=== PATIENT | female | born 1980 | race African-American/Black ===

== ENCOUNTER → 2019-03-03 | Outpatient (CLI) | payer BC, OTHER ==
[~2019-03-03] MED LIST: BACTRIM DS TAB1 EACH PO; CIPRO500 MG PO; COLACE100 MG PO; FLAGYL500 MG PO; GLUMETZA500; HYDROCODONE-AP1 EAC6 PO; KEFLEX500 M1 PO; KEFLEX500 MG PO; NORCO 10-325 T1 EACH PO; NOVOLOG100 UNIT/M; PIOGLITAZONE15 MG; PRENATE ELITE1 EAC2
== END ==
LOC: HYPER 08:38
DX: E11.621 Type 2 diabetes mellitus with foot ulcer (principal); L97.512 Non-pressure chronic ulcer of other part of right foot with fat layer exposed; L98.9 Disorder of the skin and subcutaneous tissue, unspecified; L84 Corns and callosities; E66.3 Overweight; R60.0 Localized edema; Z68.28 Body mass index [BMI] 28.0-28.9, adult; Z79.84 Long term (current) use of oral hypoglycemic drugs

== ENCOUNTER 2019-03-05 16:34 | Inpatient (IN) | payer BC, OTHER ==
[~2019-03-05] VITALS: Ht 160 cm; Wt 73.0 kg
[~2019-03-05 16:34] MED LIST changes: -BACTRIM DS TAB1 EACH PO; -KEFLEX500 M1 PO
[2019-03-05 16:35] VITALS: BP 148/85
[2019-03-05 17:52] LABS: BE(vivo) 5.4 mmol/L (-2 to +3); HCO3 28.6 mmol/L (22.0-26.0); PCO2 VENOUS 36.3 mmHg (41.0-51.0); PO2 VENOUS 35.4 mmHg (35.0-45.0)
--- NOTE | 2019-03-05 18:04 | NUR ---
IV BLOWN X 2; COMPLAINT INSPECTOR PAGED BY EVANGELIST MARIA RN
[2019-03-05 18:05] LABS: HEMATOCRIT 26.4 % (37.0-47.0); HEMOGLOBIN 8.1 gm/dL (12.0-15.0); MCH 19.1 pg (26.0-34.0); MCHC 30.5 g/dL (28.0-37.0); MCV 62.6 fL (80.0-100.0); PLATELET COUNT 653 thou/uL (150-400); RBC 4.22 mil/uL (4.20-5.00); RDW 15.8 % (10.5-14.5); WBC 32.4 thou/uL (4.0-11.0)
[2019-03-05 18:19] LABS: CALCIUM 8.9 mg/dL (8.5-10.1); CREATININE 1.1 mg/dL (0.6-1.0); POTASSIUM 4.7 mmol/L (3.5-5.1)
[2019-03-05 18:24] LABS: TOTAL BILIRUBIN 0.1 mg/dL (<0.1-1.0); TOTAL PROTEIN 7.7 g/dL (6.4-8.2)
[2019-03-05 18:44] LABS: PLATELET ESTIMATE INCREASED
[2019-03-05 18:45] LABS: HYPOCHROMASIA 3+; MICROCYTES 3+; TARGET CELLS 1+
[2019-03-05 18:46] LABS: OVALOCYTES 1+; SCHISTOCYTES 1+
[2019-03-05 18:50] VITALS: BP 148/85
[2019-03-05 19:00] VITALS: BP 160/92
[2019-03-05] MEDS ORDERED: BACTRIM DS TAB1 EACH PO (19:21)
[2019-03-05] MEDS ORDERED: KEFLEX500 M1 PO (19:21)
--- NOTE | 2019-03-05 19:27 | NUR ---
CALLED AT THIS VERY MINUTE AND WAS TOLD THAT NURSE IS IN REPORT; I ADVISED THAT I WAITED UNTIL NOW TO CALL I THOUGHT 45 MIN AFTER SHIFT CHANGE WOULD BE LONG ENOUGH; STILL UNABLE TO COME TO THE PHONE; ADVISED HOOKER MACHINE TENDER WILL HAVE TO CALL REPORT
[2019-03-05 19:39] LABS: % SATURATION 10 % (20-39); IRON 23 ug/dL (50-170); TIBC 222 ug/dL (250-450)
--- NOTE | 2019-03-05 19:42 | NUR ---
CONSULTED TO PLACE A PICC FOR A PATIENT IN THE ER ADMITTING WITH A FOOT WOUND INFECTION AND ELEVATED WBC. DR. WHELAN AT BEDSIDE AND REQUESTING A PICC. PICC PLACEMENT DISCUSSED WITH THE PATIENT. BENIFITS AND RISKS FOR DVT AND INFECTION WERE DISCUSSED AND SHE VERBALIZED UNDERSTANDING. CONSENT SIGNED. THE RUE BASILIC WAS WIDLEY PATENT. A #4F DOUBLE LUMEN POWER PICC WAS PLACED PER HOSPITAL POLICY AFTER A BEDSIDE TIMEOUT WAS COMPLETE. PICC WAS TRIMMED TO 40CM AND ADVANCED TO 2CM EXTERNAL. A STAT CHEST XRAY WAS ORDERED TO CONFIRM PLACEMENT
--- NOTE | 2019-03-05 19:57 | EKG ---
[address] [address] ELECTROCARDIOGRAM REPORT Name: ANAY AKBARTANNA ROSIBEL Room #: 170-6 ADM IN M.R.#: [id number] ������������������ Admission: 03/05/19 ������������������ Attend Phys: Casper Seay MD Discharge: ������������������ Date of : 80 Report #: [id number] ����������������������������������������������������������������� [id number] THIS REPORT FOR: //name// [facility] ED Test Date: 2019-03-05 Test Time: 17:30:59 Pat Name: TANNA AKBAR Department: Room: 170 Gender: F Zumba Instructor: SHARRI : 1980 Requested By: Prasad Dyer Order Number: [id number] MD: Carlos Griffith Measurements Intervals [place] Rate: 101 P: 92 AK: 151 QRS: 40 QRSD: 80 T: 14 QT: 345 QTc: 448 Interpretive Statements Sinus tachycardia Borderline T abnormalities, anterior leads No previous ECG available for comparison Electronically Signed On 03-05-2019 19:57:31 CDT by Carlos Griffith [email or web address] ��������������������������������������������� <ELECTRONICALLY SIGNED> ���������������������������������������� By: Carlos Griffith MD ��������������������������������������������� 03/05/191956 29 29 Carlos Griffith MD /JULIETTE
[2019-03-05 20:06] LABS: FOLIC ACID 15.5 ng/mL (8.6-58.9)
[2019-03-05 22:00] VITALS: BP 128/78
[2019-03-06 04:05] VITALS: BP 113/69
--- NOTE | 2019-03-06 04:24 | NUR ---
PT ADMITTED TO THE UNIT @ 2049 IN A STABLE CONDITION. ADMISSION HX, EDUCATION AND ASSESSMENT COMPLETED. PT DENIED PAIN. HAS BLISTER ON RIGHT FOOT. IV ABX AND IVF INFUSING ORDERED. PICC ON NINFA. FALL AND ISOLATION PREC IN PLACE. CALL LIGHT WITHIN REACH
[2019-03-06 07:45] VITALS: BP 123/75
[2019-03-06 08:34] LABS: HEMOGLOBIN 6.7 gm/dL (12.0-15.0)
[2019-03-06 08:35] LABS: HEMATOCRIT 21.3 % (37.0-47.0); MCH 19.4 pg (26.0-34.0); MCHC 31.2 g/dL (28.0-37.0); MCV 62.1 fL (80.0-100.0); RBC 3.44 mil/uL (4.20-5.00); RDW 15.4 % (10.5-14.5)
[2019-03-06 08:37] LABS: CALCIUM 8.1 mg/dL (8.5-10.1); PLATELET COUNT 543 thou/uL (150-400); POTASSIUM 4.5 mmol/L (3.5-5.1); WBC 16.5 thou/uL (4.0-11.0)
[2019-03-06 09:19] LABS: ABSOLUTE NEUTROPHILS 12.2 thou/uL (1.4-8.2); ANISOCYTOSIS 1+; HYPOCHROMASIA 2+; MICROCYTES 3+; PLATELET ESTIMATE INCREASED
--- NOTE | 2019-03-06 10:47 | NUR ---
Assess due to pt with right foot abscess, hx of diabetes. BG [phone], A1C is pending. Not wanting to answer many questions regarding diet. Stated appetite is fine. Chart was reviewed and was noted pt noncompliant with medications. Continue carb control diet and available for questions if needed. Low nutrition risk
[2019-03-06 15:14] LABS: HEMATOCRIT 22.2 % (37.0-47.0)
--- NOTE | 2019-03-06 15:50 | NUR ---
ASSESSMENT-PT LIVES AT HOME WITH HER CHILDREN. PT WALKS ON HER OWN AND DOES HER OWN ADLS. PT DRIVES. PT DENIES ANY DME AND DENIES ANY HH SERVICES. PT WAS WORKING PRIOR TO ADMISSION. SHE HER SISTER HERE IN THE AREA FOR SUPPORT. PT TELLS ME SHE MAY BE GOING TO SURGERY LATER TODAY. FOLLOWING TO ASSIST WITH DC PLANNING. GAVE PT ADV. DIRECTIVE INFORMATION.
[2019-03-06 16:00] VITALS: BP 148/94
--- NOTE | 2019-03-06 20:38 | NUR ---
ASSUMED CARE OF PT AT 0700. ASSESSMENT CHARTED. DROWSY, BUT ORIENTED TO PERSON, PLACE, TIME, AND SITUATION. DENIES PAIN. RIGHT FOOT BLISTER AND LEFT LEVY NONHEALING WOUND NOTED. LOW HGB NOTED THIS AM, H&H ORDERED, DR. WHELAN NOTIFIED NO BLOOD TRANSFUSION ORDERS AT THIS TIME. MRI AND US COMPLETED TODAY. GENET PATEL PLANS FOR I&D THIS EVENING. PT NPO STARTING AT 12:00. ACHS, INSULIN GIVEN ORDERED. PT LEFT VIA CART AT 19:30 FOR SURGERY. END OF SHIFT.
[2019-03-06 22:35] VITALS: BP 130/84
--- NOTE | 2019-03-06 23:42 | O ---
[facility] [place] [address] OPERATIVE REPORT Name: ANAY AKBARTANNA Room #: 424-P ADM IN M.R.#: [id number] Admission: 03/05/19 ������������������ Attend Phys: Casper Seay MD Discharge: ������������������ Date of : 80 Report #: [id number] THIS REPORT FOR: //name// CC: Casper Seay [facility] physician/PCP DATE OF SERVICE: 03/06/2019 SERVICE: Orthopedics. FACILITY: [facility] SURGEON: Marlon Tellez M.D. PRECISION ASSEMBLER BENCH: Myesha Corral NP PREOPERATIVE DIAGNOSES: 1. Abscess, right foot. 2. Uncontrolled diabetes. POSTOPERATIVE DIAGNOSES: 1. Abscess, right foot. 2. Uncontrolled diabetes. PROCEDURE: Incision and drainage down to the muscle layer, right foot. COMPLICATIONS: None. DRAINS: None. SPECIMENS: Cultures x 2. HISTORY OF PRESENT ILLNESS: The patient is a 39-year-old female with history of uncontrolled diabetes, who reportedly stepped on a piece of glass and sustained a puncture wound on her foot. She later developed a diabetic foot wound and was admitted to the hospital yesterday evening and placed on antibiotics. She was noted to have a significant abscess. An MRI confirmed such as well, with traversing of a dorsal mid foot abscess on the lateral aspect of the foot down to the original puncture wound. She was indicated for surgical treatment. Risks, benefits, alternatives and indications of surgery were discussed with her in detail and she gave full informed consent and wished to proceed. Risks included, but not limited to pain, bleeding, persistence of the infection, injury to nerves or blood vessels, persistent infection, need for further surgery including repeat as well as complications related to anesthesia. PROCEDURE IN DETAIL: After the right lower extremity was correctly identified [facility] [address] [place] [address] OPERATIVE REPORT Name: ANAY NAOMIETANNA ROSIBEL Room #: 424-P [facility] IN M.R.#: [id number] Admission: 03/05/19 ������������������ Attend Phys: Casper Seay MD Discharge: ������������������ Date of : 80 Report #: [id number] in the preoperative holding area as the operative extremity, the patient was taken to the operating room, where general anesthesia was induced without complication. She was padded appropriately. She did not receive intraoperative prophylactic antibiotics as she is already on an antibiotic regimen. The right leg was prepped and draped in the standard sterile fashion. Time-out procedure was performed. No tourniquet was utilized. Note that a 16-gauge needle was used to aspirate the purulence out of the abscess in a sterile fashion and this was sent for cultures x 2. The blister on the dorsum of the foot, which was about 12 cm in length x 8 cm in width, was then unroofed and peeled back and this allowed access to the abscess, which itself ultimately was 5 cm wide x 5 cm long x 5 cm deep. The wound on the dorsal side of the lateral mid foot was incised and the necrotic tissue was excised, leaving an ellipsoid-shaped wound and then blunt dissection was performed, exploring throughout the purulent avenues within the mid foot, primarily with the pus originating from the plantar puncture wound, which openly communicate with the dorsal wound. More medially, there was some unhealthy appearing cutaneous tissue and there was, in fact, an abscess that was traversing across the dorsum of the mid foot more medially and the shape of this was rather difficult to discern with blunt exploration. So, I made a counterincision more medially in order to ensure that the entire cavity was adequately exposed and debrided and some additional purulence to egress with making this counterincision. The blunt dissection was then completed and then the wound was copiously irrigated. A second round of debridement was performed sharply all the way down to the muscle layer. There was no apparent periosteal violation and so no evidence of bony involvement or osteomyelitis on my inspection. After the second round of sharp debridement was completed, the wound was again irrigated and explored to ensure that there was no further residual infection. At this point, the final irrigation was performed and then the wound cavities were packed with Dakin-soaked gauze. Xeroform was placed over the desquamed dorsal mid foot tissue and then a sterile gauze wrap applied, followed by an Ross wrap. The patient was awakened from anesthesia and taken to recovery room in stable condition. No complications. All counts were correct. ��������������������������������������������� <ELECTRONICALLY SIGNED> ���������������������������������������� By: Marlon Tellez MD ��������������������������������������������� 03/06/19 2342 [id number] Marlon Tellez MD /nt
[2019-03-07 02:06] LABS: ESTIMATED AVERAGE GLUCOSE < 74 mg/dL (()); GLYCOHEMOGLOBIN (HGB A1C) < 4.2 % (4.8-5.6)
--- NOTE | 2019-03-07 02:38 | NUR ---
PT CAME UP TO FLOORFROM SURGERY AT 2212.PT WAS STILL DROWSY BUT EASILY AROUSABLE.PT ON 2L/NC.DRSG ON HER R FOOT C/D/I.IVF AND IV ABX INFUSING ORDERED.BG MONITORED WITH COVERAGE.VSS SO FAR.PT RESTING ON HER BED AT THIS TIME.FALL AND ISOLATION PRECAUTIONS IN PLACE.CALL LIGHT WITHIN REACH.
[2019-03-07 03:55] VITALS: BP 114/75
[2019-03-07 05:52] LABS: MCHC 31.7 g/dL (28.0-37.0)
[2019-03-07 05:54] LABS: MCH 19.5 pg (26.0-34.0); MCV 61.7 fL (80.0-100.0); PLATELET COUNT 514 thou/uL (150-400); RDW 15.4 % (10.5-14.5); WBC 15.7 thou/uL (4.0-11.0)
[2019-03-07 06:01] LABS: CALCIUM 7.9 mg/dL (8.5-10.1); HEMOGLOBIN 6.3 gm/dL (12.0-15.0); POTASSIUM 3.9 mmol/L (3.5-5.1)
[2019-03-07 06:02] LABS: HEMATOCRIT 19.7 % (37.0-47.0)
[2019-03-07 06:34] LABS: ABSOLUTE NEUTROPHILS 11.6 thou/uL (1.4-8.2)
[2019-03-07 06:36] LABS: ANISOCYTOSIS 1+; HYPOCHROMASIA 3+; MICROCYTES 3+; PLATELET ESTIMATE INCREASED; POIKILOCYTOSIS 1+; POLYCHROMASIA 2+
[2019-03-07 07:59] VITALS: BP 103/64
--- NOTE | 2019-03-07 12:31 | NUR ---
WOUND CARE CONSULT; I WAS CONSULTED TO FOLLOW THIS PATIENT FOR WOUND CARE S/P WOUND DEBRIDEMENT AND VAC APPLICATION / MANAGEMENT. THE WOUND IS STABLE PRIOR TO APPLICATION. FAMILY PRESENT AND EDUCATED ALL MATTERS RELATED TO VAC THERAPY. THE WOUNDBED IS CLEAN WITH NO BLEEDING. A TENDON WAS VISIBLE. THE VAC WAS APPLIED WITHOUT ANY PROBLEMS. RECOMMENDATION; CONTINUE VAC THERAPY. FAMILY PRESENT
[2019-03-07 13:43] VITALS: BP 113/75; BP 135/68
[2019-03-07 15:25] VITALS: BP 94/66
--- NOTE | 2019-03-07 16:58 | NUR ---
PT IN BED SLEEPING ON AND OFF.ASSESSMENT COMPLETED.VSS.DR FISCHER HERE,ORDER NOTED.INSURANCE CLERK PLACED WOUND VAC TO LEFT FOOT.1 UNIT PRBC GIVEN TODAY. HH WILL BE CHECK BEFORE THE END OF SHIFT.FAMILY HERE TO VISIT,UPDATES GIVEN. WILL CONTINUE TO MONITOR.
[2019-03-07 18:52] LABS: HEMATOCRIT 28.3 % (37.0-47.0)
[2019-03-07 18:56] LABS: HEMOGLOBIN 8.7 gm/dL (12.0-15.0)
[2019-03-07 20:00] VITALS: BP 105/66
--- NOTE | 2019-03-08 02:04 | NUR ---
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
[2019-03-08 05:10] VITALS: BP 110/60
[2019-03-08 05:58] LABS: HEMATOCRIT 24.2 % (37.0-47.0); HEMOGLOBIN 7.7 gm/dL (12.0-15.0); MCH 20.5 pg (26.0-34.0); MCHC 31.9 g/dL (28.0-37.0); MCV 64.2 fL (80.0-100.0); PLATELET COUNT 546 thou/uL (150-400); RBC 3.77 mil/uL (4.20-5.00); RDW 19.3 % (10.5-14.5); WBC 15.5 thou/uL (4.0-11.0)
[2019-03-08 07:35] LABS: ABSOLUTE NEUTROPHILS 10.5 thou/uL (1.4-8.2); ANISOCYTOSIS 1+; MICROCYTES 1+; POIKILOCYTOSIS 1+
[2019-03-08 07:36] LABS: BURR CELLS OCCASIONAL; HYPOCHROMASIA 1+; OVALOCYTES OCCASIONAL; POLYCHROMASIA SLIGHT; TEARDROPS OCCASIONAL
[2019-03-08 07:40] LABS: LARGE PLATELETS OCCASIONAL; PLATELET ESTIMATE INCREASED
--- NOTE | 2019-03-08 14:03 | HC ---
[facility] [place] [address] CONSULTATION Name: TANNA POOLE Room #: 424-P ADM IN M.R.#: [id number] Admission: 03/05/19 ������������������ Attend Phys: Casper Seay MD Discharge: ������������������ Date of : 80 Report #: [id number] THIS REPORT FOR: //name// CC: Casper Seay [facility] physician/PCP DATE OF SERVICE: 03/06/2019 INFECTIOUS DISEASE CONSULTATION REASON FOR CONSULTATION: Evaluate right foot soft tissue abscess. HISTORY OF PRESENT ILLNESS: A 39-year-old diabetic stepped on broken glass first week of February. This was debrided in the outpatient setting. She had been placed on Bactrim and cephalexin. No improvement with increased pain, swelling and drainage. Blood sugars have been over 200. She has been lethargic for the past week. She is admitted now for further evaluation. The patient was a poor historian. I did obtain more history from her twin sister who was in attendance. No prior history of diabetic foot infection. She does have peripheral edema issues and she has had a left pretibial wound several months ago that has been treated with antibiotics. This has yet to completely heal. She reports no smoking or other cardiovascular issues. REVIEW OF SYSTEMS: Denies any cough, sputum, nausea, vomiting, diarrhea, dysuria or frequency. A full 10-point review of systems was negative other than what has been described above. ALLERGIES: None. MEDICATIONS: As noted on her MAR including Actos, insulin, [place] and most recently, ciprofloxacin and metronidazole. PAST MEDICAL HISTORY: Diabetes, perirectal abscess, left lower extremity wound. FAMILY HISTORY: Noncontributory. SOCIAL HISTORY: Nonsmoker, no significant alcohol intake. She lives with her son. PHYSICAL EXAMINATION: VITAL SIGNS: Afebrile and hemodynamically stable. She was lethargic, but she would arouse and answer questions, but then would drift back off to sleep. SKIN: Remarkable for an eschar over the left pretibial skin with no surrounding erythema or fluctuance. HEENT: Eyes without scleral icterus. Mouth without mucositis. NECK: Supple. [facility] [address] [place] [address] CONSULTATION Name: ANAY AKBARTANNA ROSIBEL Room #: 424-P [facility] IN M.R.#: [id number] Admission: 03/05/19 ������������������ Attend Phys: Casper Seay MD Discharge: ������������������ Date of : 80 Report #: [id number] LUNGS: Clear. HEART: Regular, without murmur, gallop or rub. ABDOMEN: Soft and nontender with no hepatosplenomegaly or mass. EXTREMITIES: The right foot had a large bullous lesion over the lateral mid to hindfoot. There was open wound break in the skin over the heel pad plantar aspect. There was seropurulent drainage expressed out of this. She had a fair amount of tenderness throughout. She had reasonable sensation in her toes. Good capillary refill. Pulses were diminished in her foot. 2+ pulse in the right femoral and 1+ in the right popliteal. Strength in the upper and lower extremities is normal. PSYCHIATRIC: Mood sedate. LABORATORY STUDIES: Hemoglobin 6.7, WBC 16.5, platelet count 543,000. Creatinine 1. Blood cultures are negative to date. Chest x-ray clear. X-ray of the foot with no bony abnormalities evident. Culture, blood negative to date. IMPRESSION: 1. A 39-year-old with diabetic foot infection following injury with glass impaled in her heel soft tissue, now with worsening skin and soft tissue infection. I am suspecting a polymicrobial infection with increased fluid collection in the soft tissues of the heel. 2. Diabetes, poorly controlled. RECOMMENDATIONS: We will continue IV antibiotic therapy. Obtain tissue cultures. MRI scan. Orthopedic Surgery consultation. I suspect the patient will need incision and drainage. Check vascular studies. Control blood glucose. ��������������������������������������������� <ELECTRONICALLY SIGNED> ���������������������������������������� By: Qamar Collier MD ��������������������������������������������� 03/08/19 1403 [id number] [id number] Qamar Collier MD /nt
--- NOTE | 2019-03-08 14:18 | HC ---
[facility] [place] [place] [address] CONSULTATION Name: TANNA POOLE Room #: 424-P ADM IN M.R.#: [id number] Admission: 03/05/19 ������������������ Attend Phys: Casper Seay MD Discharge: ������������������ Date of : 80 Report #: [id number] THIS REPORT FOR: //name// CC: Casper Seay [facility] physician/PCP DATE OF SERVICE: 03/07/2019 CHIEF COMPLAINT: Diabetic foot ulceration and abscess. HISTORY OF PRESENT ILLNESS: This is a 39-year-old female patient with poorly controlled diabetes. She stepped on a broken glass on 02/19/2019 at her house, was placed on oral antibiotics. She was seen initially in the wound clinic and had some local debridement. She has developed increasing blistering over the lateral right foot, has undergone incision and debridement here in the hospital and was admitted for intravenous antibiotic therapy. She denies pain associated with this. She states that she is feeling relatively well at this time. The surgeon noted in his operative note that there was no evidence of any periosteal involvement and no evidence clinically to suggest osteomyelitis. PAST MEDICAL HISTORY: 1. Diabetes, uncontrolled. 2. Abscess of the right foot. 3. History of perirectal abscess. SOCIAL HISTORY: Negative for alcohol or tobacco use. MEDICATIONS: Include Cipro, Flagyl, [place], Colace, NovoLog, Actos. ALLERGIES: No known drug allergies. REVIEW OF SYSTEMS: CONSTITUTIONAL: The patient denies fever, chills or weight loss. NEUROLOGICAL: The patient denies focal weakness, numbness or tingling, but does note diminished light touch sensation of her lower extremities. ENT: The patient denies earache, nasal drainage, sore throat. CARDIOVASCULAR: The patient denies chest pain or palpitations or diaphoresis. PULMONARY: The patient denies cough or shortness of breath. GASTROINTESTINAL: The patient denies nausea, vomiting, diarrhea or abdominal pain. ORTHOPEDIC: The patient has the ulceration and the surgical wounds to her right foot. Other systems in a 14-point review of systems are negative. PHYSICAL EXAMINATION: VITAL SIGNS: At this time include temperature 98.5, pulse 79, respiratory rate [facility] [address] [place] [address] CONSULTATION Name: TANNA POOLE Room #: 424-P ADM IN M.R.#: [id number] Admission: 03/05/19 ������������������ Attend Phys: Casper Seay MD Discharge: ������������������ Date of : 80 Report #: [id number], blood pressure 103/64. GENERAL: This is a well-developed, well-nourished female patient who appears to be in minimal distress. HEENT: Head normocephalic. Nose and throat clear. NECK: Supple. LUNGS: Clear. HEART: Regular. ABDOMEN: Bowel sounds present. EXTREMITIES: Lower extremities, demonstrably palpable distal pulses. She has surgical wounds on the lateral aspect of the right foot. They are relatively healthy, clean and granulating with no odor or perceivable drainage. The small ulceration on the plantar aspect of the foot is nearly closed. CLINICAL IMPRESSION: 1. Diabetic foot infection and abscess secondary to a glass foreign body. 2. Poorly controlled diabetes mellitus. RECOMMENDATIONS: At this point in time, the patient will be continued on intravenous antibiotic therapy. Cultures from the surgery are pending. We will place a wound VAC to the open areas. She has good vascularity and it ought to heal relatively well. She will need aggressive nutritional support to maximize wound healing and maintain glycemic control as well as diabetic education. All questions have been answered. I appreciate being asked to see her in consultation. ��������������������������������������������� <ELECTRONICALLY SIGNED> ���������������������������������������� By: Josue Lubin MD ��������������������������������������������� 03/08/19 1418 1524 1935 Josue Lubin MD /nt
--- NOTE | 2019-03-08 15:09 | NUR ---
WOUND CARE FOLLOW UP; ROUNDING WITH DR ENRIQUE AND TYREE RECORD MAKER. THE VAC IS FUNCTIONING APPROPRIATLY, THE PATIENT HAS NO COMPLAINTS. NO S/S OF INFECTION AROUND THE SITE OR SYSTEMICALLY NOTED. CONTINUE CURRENT POC DISCUSSED WITH STAFF
--- NOTE | 2019-03-08 15:12 | NUR ---
Following for d/c planning needs. Spoke with physician and pt. Pt plans on returning home on d/c from hospital. Pt does not have PCP.
[2019-03-08 15:51] VITALS: BP 135/92
--- NOTE | 2019-03-08 19:42 | NUR ---
ASSUMED CARE OF PT AT 0700. ASSESSMENT CHARTED. DROWSY, BUT ORIENTED X4. DENIES PAIN. [address], SATS ABOVE 92%. ACHS, INSULIN GIVEN ORDERED. RIGHT FOOT WOUND VAC IN PLACE, NO PROBLEMS NOTED, MINIMAL OUTPUT. VSS. END OF SHIFT.
[2019-03-08 21:38] VITALS: BP 127/85
[2019-03-09 05:05] VITALS: BP 126/82
--- NOTE | 2019-03-09 06:36 | NUR ---
pt rested good, pain to right foot controlled by norco, tolerating oral intake, no nausea noted, no bm noted, voiding in the toilet, up [facility] standby assist, gait is good, wound vac patent, no drainage noted, remains on contact isolation, hourl rounding, monitored.
[2019-03-09 07:27] LABS: BE(vivo) -4.7 mmol/L (-2 to +3); HCO3 20.6 mmol/L (22.0-26.0); PCO2 38.7 mmHg (35.0-45.0); PO2 69.4 mmHg (80.0-100.0); pH 7.344 (7.360-7.450); sO2 93.1 % (92.0-98.0)
[2019-03-09 08:06] LABS: MCH 20.5 pg (26.0-34.0); MCHC 31.6 g/dL (28.0-37.0); MCV 64.7 fL (80.0-100.0); RDW 18.7 % (10.5-14.5); WBC 12.3 thou/uL (4.0-11.0)
[2019-03-09 08:10] LABS: HEMOGLOBIN 7.6 gm/dL (12.0-15.0); PLATELET COUNT 548 thou/uL (150-400)
--- NOTE | 2019-03-09 08:13 | NUR ---
Received consult for malnutrition; will defer diagnosis at this time. Seen on 03/[address] Seen again this AM, but pt still sleeping. Spoke w/ twin sister present at bedside to check in on nutritional intake/status and provide further education. Pt ate 100% of ALL meals yesterday. Sister confirms PO intake is very adequate, pt eating from all food groups. S/p I&D on 03/06 w/ wound vac to R foot for diabetic infection. BGs semi controlled, high at times (135-236 mg/dl x 2 days). On Humalog SSI. IVFs continue. Educated on great need for protein, choosing ideally 2 sources q meal. Recommended home diet of lower carbs (30-45 g/meal), high protein, high vegetables to prevent delayed wound healing. Remains low nutrition risk with education provided.
[2019-03-09 08:23] VITALS: BP 155/101
[2019-03-09 08:36] LABS: ABSOLUTE NEUTROPHILS 6.9 thou/uL (1.4-8.2)
[2019-03-09 08:37] LABS: ANISOCYTOSIS 2+; HYPOCHROMASIA 3+; MICROCYTES 3+; OVALOCYTES 1+; POLYCHROMASIA SLIGHT
[2019-03-09 08:38] LABS: SCHISTOCYTES RARE
--- NOTE | 2019-03-09 10:27 | NUR ---
JULIO reviewed chart. Pt remains on IV abx: vanco and zosyn. Pt has wound vac in place on right foot. SW contacted brim raiser to determine if pt will need home wound vac. Per ID, cultures pending at this time. Plan is for pt to return home when medically stable. JULIO is following to assist as needed with discharge planning.
[2019-03-09 16:05] VITALS: BP 140/92
--- NOTE | 2019-03-09 16:13 | NUR ---
DISCHARGE PLANNING. ANTICPATED DISCHARGE TO HOME WITH IV ANTIBOTIC INFUSION. PATIENT REFERRAL FAXED TO [facility]. VERIFIED REFERRAL RECEIVED. AWATING RESPONSE FROM [facility]. UNIT SW AWARE. FOLLOWING TO ASSIST WITH DISCHARGE.
--- NOTE | 2019-03-09 20:22 | NUR ---
ASSUMED CARE OF PT AT 0700. ASSESSMENT CHARTED. A&O,X4. DENIES PAIN. RIGHT FOOT WOUND VAC IN PLACE. UP WITH X1 ASSIST, GAIT BELT AND WALKER. [address] ONE EPISODE OF N/V THIS AFTERNOON, ZOFRAN GIVEN ORDERED. N/V RESOLVED. PT REPORTS LBM ONE WEEK AGO AND PERSISTENT COUGH, SPOKE TO PHYSICIAN ABOUT THESE CONCERNS, WAITING FOR ORDERS. MOM AND SISTER AT BEDSIDE. NEW POSTOP SHOE ORDERED AND WITH PT. VSS.
[2019-03-09 21:05] VITALS: BP 138/88
--- NOTE | 2019-03-10 04:44 | NUR ---
ASSUMED CARE OF PT @1900 PT A&OX4 DENIES PAIN. WOUND VAC ON RT FOOT INTACT AND DRAINING. ON 2L OF . HOB ELEVATED AND FALL PREC IN PLACE. POC DONE AND FLUIDS INFUSING. WILL CONTIN UE TO MONITOR TILL EOS
[2019-03-10 05:59] LABS: HEMATOCRIT 22.4 % (37.0-47.0); WBC 11.2 thou/uL (4.0-11.0)
[2019-03-10 06:02] LABS: MCH 20.4 pg (26.0-34.0); MCHC 31.3 g/dL (28.0-37.0); MCV 65.2 fL (80.0-100.0); PLATELET COUNT 516 thou/uL (150-400); RBC 3.43 mil/uL (4.20-5.00); RDW 19.1 % (10.5-14.5)
[2019-03-10 06:31] LABS: ABSOLUTE NEUTROPHILS 7.5 thou/uL (1.4-8.2)
[2019-03-10 06:32] LABS: ANISOCYTOSIS 2+; HYPOCHROMASIA 3+; MICROCYTES 3+; PLATELET ESTIMATE INCREASED; POIKILOCYTOSIS 2+
[2019-03-10 06:40] VITALS: BP 138/91
--- NOTE | 2019-03-10 10:36 | NUR ---
JULIO reviewed chart and spoke with nursing and attending physician. Awaiting culture results at this time for recommendation for home abx. JULIO notified that pt has an out of pocket cost of $7900 and a deductible of $3000. [employer] will bill pt's insurance first, as pt will most likely meet her out of pocket and deductible from this hospitalization. If pt does not, then her services will be $132 per day. If pt meets her out of pocket and not the deductible, the cost will be $26.44 per day (20%). If pt meets both (OOP and deductible), then she will be covered at 100%. JULIO faxed PICC line report and order for IV zosyn to [facility]. JULIO notified [facility] liaison. JULIO is following to assist as needed with discharge planning.
[2019-03-10 14:37] VITALS: BP 138/91
[2019-03-10 16:01] VITALS: BP 162/95
--- NOTE | 2019-03-10 16:35 | NUR ---
WOUND CARE FOLLOW UP; ROUNDING WITH DR ENRIQUE AND TRYEE SHEET METAL SHOP HELPER. THE WOUND WAS MACERATED, AND THE DRESSING WAS FOUND NOT INTACT. NO S/S OF INFECTION AT THIS TIME. RECOMMENDATION; D/C WOUND VAC, APPLY AQUACEL AG, ABD SECURE WITH KERLIX AND RAFA WRAP. ( FOLLOW UP IN WOUND CLINIC) DISCUSSED WITH MARK
--- NOTE | 2019-03-10 19:43 | NUR ---
Assumed pt care at 7am.Pt in and out of bed for activities.Assessment completed.vss.Meds given as ordered and well tolerated.Dr Lubin and Royal here order noted.Dc home cancelled for today.Pt will be having 1 unit prbc tonite.Family here and updates given.Mom wanted to be call for all decision making.Pt o2 sat cont to drop per exercise oximetry.Pt remains on o2 at 2lnc.Report off to indy castellon.
[2019-03-10 22:46] VITALS: BP 153/96
[2019-03-10 22:49] VITALS: BP 143/89; BP 149/91; BP 151/88
[2019-03-10 23:40] VITALS: BP 143/89
[2019-03-11 03:45] VITALS: BP 151/88
[2019-03-11 05:16] VITALS: BP 180/111
[2019-03-11 05:43] VITALS: BP 151/88
[2019-03-11 06:29] VITALS: BP 170/91
--- NOTE | 2019-03-11 06:47 | NUR ---
ASSUMED CARE OF PT@ 1900. PT A&0X4. PT ADMINISTERED 1 UNIT OF BLOOD AT THIS SHIFT WITNESS AND DOCUMENTED. NO ADVERSE REACTION AND VITAL SIGNS DOCUMENTED. RAFA WRAPS ON RT FOOT INTACT. ABX INFUSING. AND EVENING MEDS GIVEN. WILL CONTINUE TO MONITOR TILL EOS
[2019-03-11 09:27] LABS: HEMATOCRIT 28.7 % (37.0-47.0); MCH 21.6 pg (26.0-34.0); MCHC 31.7 g/dL (28.0-37.0); MCV 68.1 fL (80.0-100.0); RBC 4.22 mil/uL (4.20-5.00); RDW 23.1 % (10.5-14.5)
[2019-03-11 09:28] LABS: HEMOGLOBIN 9.1 gm/dL (12.0-15.0)
[2019-03-11 09:30] LABS: CALCIUM 9.2 mg/dL (8.5-10.1); MAGNESIUM 1.7 mg/dL (1.8-2.4); POTASSIUM 3.9 mmol/L (3.5-5.1)
[2019-03-11 17:24] VITALS: BP 153/105
[2019-03-11 20:43] VITALS: BP 158/106
[2019-03-12 05:52] VITALS: BP 169/98
--- NOTE | 2019-03-12 07:56 | NUR ---
PT AMBULATING TO BATHROOM INDEPENDENTLY AND IS TOLERATING WELL. DENIES PAIN. RESTING COMFORTABLY. NO NEEDS VOICED. CALL LIGHT WITHIN REACH. WILL CONTINUE TO PROVIDE FREQUENT OBSERVATION.
[2019-03-12 08:02] VITALS: BP 180/106
[2019-03-12 08:10] LABS: HEMOGLOBIN 8.8 gm/dL (12.0-15.0)
[2019-03-12 08:11] LABS: HEMATOCRIT 28.1 % (37.0-47.0); MCH 21.1 pg (26.0-34.0); MCHC 31.5 g/dL (28.0-37.0); MCV 67.2 fL (80.0-100.0); PLATELET COUNT 553 thou/uL (150-400); RBC 4.18 mil/uL (4.20-5.00); RDW 23.6 % (10.5-14.5); WBC 12.5 thou/uL (4.0-11.0)
[2019-03-12 08:18] LABS: CREATININE 1.1 mg/dL (0.6-1.0); MAGNESIUM 1.3 mg/dL (1.8-2.4); POTASSIUM 3.8 mmol/L (3.5-5.1)
[2019-03-12 08:46] LABS: ABSOLUTE NEUTROPHILS 8.3 thou/uL (1.4-8.2)
[2019-03-12 08:47] LABS: ANISOCYTOSIS 3+; BURR CELLS OCCASIONAL; HYPOCHROMASIA 1+; MICROCYTES 1+; TARGET CELLS 1+
[2019-03-12 09:17] VITALS: BP 161/86
--- NOTE | 2019-03-12 13:02 | NUR ---
ASSESMENT COMPLETED. VSS. A/O. DENIES PAIN. NO NOTED SOA. NO NV. UP AD BUCK. PT RESTING IN BED AT THIS TIME. LAXATIVE GIVEN- WAITING FOR RESULTS. ANTICIPATING DC TODAY. WILL CONT. TO MONITOR.
[2019-03-12] MEDS ORDERED: LASIX 40 MG TAB40 M2 PO (15:03)
[2019-03-12] MEDS ORDERED: KLOR-CON 1010 MEQ PO (15:03)
[2019-03-12] MEDS ORDERED: IRON325 PO (15:03)
[2019-03-12] MEDS ORDERED: ZOSYN 3.3753.375 GM IV (15:03)
[2019-03-12] MEDS ORDERED: NORCO 5-325 TA1 EAC1 PO (15:03)
[2019-03-12] MEDS ORDERED: TYLENOL325 MG PO (15:03)
[2019-03-12 15:41] VITALS: BP 156/89
--- NOTE | 2019-03-12 19:05 | NUR ---
CALLED [facility]- THEY WILL DELIVER ABX AT PT ADDRESS THIS EVENING AROUND 8 PM. [facility] WILL VISIT PT TONIGHT BETWEEN [phone] FOR INFUSION TEACHING. PT RESTING IN BED AT THIS TIME. REPORT GIVEN TO NIGHT RN- PT TO DC ONCE ABX INFUSION FINISHED.
== END 2019-03-12 20:00 | disposition home or self-care (01) | DRG 622 ==
LOC: ER 16:34 → 4E 18:19 → EROBS 18:19 → 4E 19:00
PROVIDERS: Emergency Medicine; Internal Medicine; Nurse Practitioner Family; Orthopaedic Surgery Sports Medicine; ADMIT Hospitalist
DX: E11.69 Type 2 diabetes mellitus with other specified complication (principal); J96.01 Acute respiratory failure with hypoxia; J18.1 Lobar pneumonia, unspecified organism; D62 Acute posthemorrhagic anemia; J98.11 Atelectasis; L02.611 Cutaneous abscess of right foot; E11.51 Type 2 diabetes mellitus with diabetic peripheral angiopathy without gangrene; E11.42 Type 2 diabetes mellitus with diabetic polyneuropathy; S91.341A Puncture wound with foreign body, right foot, initial encounter; D57.3 Sickle-cell trait; X58.XXXA Exposure to other specified factors, initial encounter; D56.9 Thalassemia, unspecified; E11.65 Type 2 diabetes mellitus with hyperglycemia; D47.3 Essential (hemorrhagic) thrombocythemia; N28.9 Disorder of kidney and ureter, unspecified; D63.8 Anemia in other chronic diseases classified elsewhere; Z79.1 Long term (current) use of non-steroidal anti-inflammatories (NSAID); Z79.899 Other long term (current) drug therapy; Y93.89 Activity, other specified; Y92.89 Other specified places as the place of occurrence of the external cause; Y99.8 Other external cause status
CPT/HCPCS: 10084; 10183; 27000; 50010; 50101; 50386; 57091; 62110; 62900; 70005

== ENCOUNTER → 2019-03-28 | Outpatient (CLI) | payer BC, OTHER ==
[~2019-03-28] MED LIST changes: +BACTRIM DS TAB1 EACH PO; +IRON325 PO; +KEFLEX500 M1 PO; +KLOR-CON 1010 MEQ PO; +LASIX 40 MG TAB40 M2 PO; +NORCO 5-325 TA1 EAC1 PO; +TYLENOL325 MG PO; +ZOSYN 3.3753.375 GM IV
== END ==
LOC: HYPER 06:44
DX: T81.89XD Other complications of procedures, not elsewhere classified, subsequent encounter (principal); E11.621 Type 2 diabetes mellitus with foot ulcer; L97.515 Non-pressure chronic ulcer of other part of right foot with muscle involvement without evidence of necrosis; L03.115 Cellulitis of right lower limb; L98.8 Other specified disorders of the skin and subcutaneous tissue; L84 Corns and callosities; Z79.84 Long term (current) use of oral hypoglycemic drugs; Y84.2 Radiological procedure and radiotherapy as the cause of abnormal reaction of the patient, or of later complication, without mention of misadventure at the time of the procedure; Y83.8 Other surgical procedures as the cause of abnormal reaction of the patient, or of later complication, without mention of misadventure at the time of the procedure

== ENCOUNTER → 2019-04-04 | Outpatient (CLI) | payer BC, OTHER | LOC: HYPER 06:41 | DX: T81.89XD Other complications of procedures, not elsewhere classified, subsequent encounter (principal); E11.621 Type 2 diabetes mellitus with foot ulcer; L97.515 Non-pressure chronic ulcer of other part of right foot with muscle involvement without evidence of necrosis; L98.9 Disorder of the skin and subcutaneous tissue, unspecified; Z79.84 Long term (current) use of oral hypoglycemic drugs; Y83.8 Other surgical procedures as the cause of abnormal reaction of the patient, or of later complication, without mention of misadventure at the time of the procedure ==

== ENCOUNTER → 2019-04-11 | Outpatient (CLI) | payer BC, OTHER | LOC: HYPER 06:49 | DX: T81.89XD Other complications of procedures, not elsewhere classified, subsequent encounter (principal); E11.621 Type 2 diabetes mellitus with foot ulcer; L97.515 Non-pressure chronic ulcer of other part of right foot with muscle involvement without evidence of necrosis; L98.9 Disorder of the skin and subcutaneous tissue, unspecified; Z79.84 Long term (current) use of oral hypoglycemic drugs; Y83.8 Other surgical procedures as the cause of abnormal reaction of the patient, or of later complication, without mention of misadventure at the time of the procedure ==

== ENCOUNTER → 2019-04-18 | Outpatient (CLI) | payer BC, OTHER | LOC: HYPER 06:57 | DX: T81.89XD Other complications of procedures, not elsewhere classified, subsequent encounter (principal); E11.621 Type 2 diabetes mellitus with foot ulcer; L97.515 Non-pressure chronic ulcer of other part of right foot with muscle involvement without evidence of necrosis; L98.9 Disorder of the skin and subcutaneous tissue, unspecified; L03.115 Cellulitis of right lower limb; Z79.84 Long term (current) use of oral hypoglycemic drugs; Y83.8 Other surgical procedures as the cause of abnormal reaction of the patient, or of later complication, without mention of misadventure at the time of the procedure ==

== ENCOUNTER → 2019-04-24 | Outpatient (CLI) | payer BC, OTHER | LOC: HYPER 06:52 | DX: T81.89XD Other complications of procedures, not elsewhere classified, subsequent encounter (principal); E11.621 Type 2 diabetes mellitus with foot ulcer; L97.515 Non-pressure chronic ulcer of other part of right foot with muscle involvement without evidence of necrosis; L03.115 Cellulitis of right lower limb; L98.9 Disorder of the skin and subcutaneous tissue, unspecified; Z79.84 Long term (current) use of oral hypoglycemic drugs; Y83.8 Other surgical procedures as the cause of abnormal reaction of the patient, or of later complication, without mention of misadventure at the time of the procedure ==

== ENCOUNTER → 2019-05-08 | Outpatient (CLI) | payer BC, OTHER | LOC: HYPER 06:59 | DX: T81.89XD Other complications of procedures, not elsewhere classified, subsequent encounter (principal); E11.621 Type 2 diabetes mellitus with foot ulcer; L97.515 Non-pressure chronic ulcer of other part of right foot with muscle involvement without evidence of necrosis; L03.115 Cellulitis of right lower limb; Z79.84 Long term (current) use of oral hypoglycemic drugs; Y83.8 Other surgical procedures as the cause of abnormal reaction of the patient, or of later complication, without mention of misadventure at the time of the procedure ==

== ENCOUNTER → 2019-05-22 | Outpatient (CLI) | payer BC, OTHER | LOC: HYPER 07:21 | DX: T81.89XD Other complications of procedures, not elsewhere classified, subsequent encounter (principal); E11.621 Type 2 diabetes mellitus with foot ulcer; L97.515 Non-pressure chronic ulcer of other part of right foot with muscle involvement without evidence of necrosis; L03.115 Cellulitis of right lower limb; L98.9 Disorder of the skin and subcutaneous tissue, unspecified; Z79.84 Long term (current) use of oral hypoglycemic drugs; Y83.8 Other surgical procedures as the cause of abnormal reaction of the patient, or of later complication, without mention of misadventure at the time of the procedure ==

== ENCOUNTER → 2019-06-05 | Outpatient (CLI) | payer BC, OTHER | LOC: HYPER 07:44 | DX: T81.89XD Other complications of procedures, not elsewhere classified, subsequent encounter (principal); E11.621 Type 2 diabetes mellitus with foot ulcer; L97.515 Non-pressure chronic ulcer of other part of right foot with muscle involvement without evidence of necrosis; L03.115 Cellulitis of right lower limb; L98.9 Disorder of the skin and subcutaneous tissue, unspecified; Z79.84 Long term (current) use of oral hypoglycemic drugs; Y83.8 Other surgical procedures as the cause of abnormal reaction of the patient, or of later complication, without mention of misadventure at the time of the procedure ==

== ENCOUNTER → 2019-06-19 | Outpatient (CLI) | payer BC, OTHER | LOC: HYPER 07:39 | DX: T81.89XD Other complications of procedures, not elsewhere classified, subsequent encounter (principal); E11.621 Type 2 diabetes mellitus with foot ulcer; L97.515 Non-pressure chronic ulcer of other part of right foot with muscle involvement without evidence of necrosis; L03.115 Cellulitis of right lower limb; L98.9 Disorder of the skin and subcutaneous tissue, unspecified; L84 Corns and callosities; Z79.84 Long term (current) use of oral hypoglycemic drugs; Y83.8 Other surgical procedures as the cause of abnormal reaction of the patient, or of later complication, without mention of misadventure at the time of the procedure ==

== ENCOUNTER → 2019-07-03 | Outpatient (CLI) | payer BC, OTHER | LOC: HYPER 09:45 | DX: T81.89XD Other complications of procedures, not elsewhere classified, subsequent encounter (principal); E11.621 Type 2 diabetes mellitus with foot ulcer; L97.515 Non-pressure chronic ulcer of other part of right foot with muscle involvement without evidence of necrosis; L03.115 Cellulitis of right lower limb; L98.9 Disorder of the skin and subcutaneous tissue, unspecified; L84 Corns and callosities; Z79.84 Long term (current) use of oral hypoglycemic drugs; Y83.8 Other surgical procedures as the cause of abnormal reaction of the patient, or of later complication, without mention of misadventure at the time of the procedure ==

== ENCOUNTER → 2019-07-18 | Outpatient (CLI) | payer BC, OTHER | LOC: HYPER 01:02 | DX: T81.89XD Other complications of procedures, not elsewhere classified, subsequent encounter (principal); E11.621 Type 2 diabetes mellitus with foot ulcer; L97.515 Non-pressure chronic ulcer of other part of right foot with muscle involvement without evidence of necrosis; L98.9 Disorder of the skin and subcutaneous tissue, unspecified; L03.115 Cellulitis of right lower limb; Z79.84 Long term (current) use of oral hypoglycemic drugs; Y83.8 Other surgical procedures as the cause of abnormal reaction of the patient, or of later complication, without mention of misadventure at the time of the procedure ==